=== PATIENT | male | born 2000 | race Two or more races ===

== ENCOUNTER 2023-09-27 11:04 | Emergency (ER) | payer MEDICAID ==
[~2023-09-27] VITALS: Ht 182.9 cm; Wt 94.4 kg
[2023-09-27 13:48] VITALS: BP 127/75; PULSE 86; RESP 18; TEMP 98; O2SAT 98
[2023-09-27] MEDS ORDERED: ALBUTEROL SULF 2.5 MG/0.5ML(0.5%) NEB SOLN NEB ONE (14:00)
[2023-09-27] MEDS ORDERED: IPRATROPIUM BROM 0.5 MG/2.5ML INH SOL NEB ONE (14:00)
[2023-09-27 14:20] VITALS: RESP 18; O2SAT 99
[2023-09-27] MEDS ORDERED: ALBU108A5 IN (14:33)
[2023-09-27] MEDS ORDERED: AZIT500T66 PO (14:33)
[2023-09-27] MEDS ORDERED: PROM1SOL4 PO (14:33)
== END 2023-09-27 15:02 | disposition home or self-care (01) ==
LOC: ER 11:04
DX: J45.909 Unspecified asthma, uncomplicated (principal); F17.210 Nicotine dependence, cigarettes, uncomplicated; F12.10 Cannabis abuse, uncomplicated
CPT/HCPCS: 71045; 94640; 99283; J7644

== ENCOUNTER → 2024-01-15 | Outpatient (CLI) | payer MEDICAID ==
[~2024-01-15] MED LIST: ALBU108A5 IN; AZIT500T66 PO; PROM1SOL4 PO
== END | disposition home or self-care (01) ==
LOC: XYW 07:46
PROVIDERS: ATTEND Student in an Organized Health Care Education/Training Program
DX: R07.9 Chest pain, unspecified (principal)
CPT/HCPCS: 93306

== ENCOUNTER 2024-03-27 22:15 | Emergency (ER) | payer MEDICAID ==
[~2024-03-27] VITALS: Ht 182.9 cm; Wt 106.8 kg
[2024-03-28] MEDS: FLUORESCEIN SOD OPTH TEST STRIP RIGHTEYE ONE (01:53)
[2024-03-28] MEDS: TETRACAINE HCL 0.5% OPTH(EYE) SOLN 4ML RIGHTEYE ONE (01:54)
[2024-03-28] MEDS ORDERED: OFL50TS OP (02:03)
[2024-03-28] MEDS: ERYTHROMY OPTH OINT 5mg/gm 1gm or 3.5gm tube OP ONE (02:43)
[2024-03-28] MEDS: TETANUS-DIPTH-ACEL PERTUSSIS 0.5ML SYR Tdap IM ONE (02:43)
[2024-03-28 03:08] VITALS: BP 119/79; PULSE 64; RESP 20; TEMP 98.6; O2SAT 99
== END 2024-03-28 04:48 | disposition home or self-care (01) ==
LOC: ER 22:15
DX: T15.02XA Foreign body in cornea, left eye, initial encounter (principal); J45.909 Unspecified asthma, uncomplicated; F17.210 Nicotine dependence, cigarettes, uncomplicated; F15.90 Other stimulant use, unspecified, uncomplicated; Z79.899 Other long term (current) drug therapy; W44.8XXA Other foreign body entering into or through a natural orifice, initial encounter; Y93.89 Activity, other specified; Y92.89 Other specified places as the place of occurrence of the external cause; Y99.8 Other external cause status
CPT/HCPCS: 90471; 90715

== ENCOUNTER 2025-04-06 19:24 | Emergency (ER) | payer MEDICAID ==
[~2025-04-06] VITALS: Ht 182.9 cm; Wt 99.9 kg
[~2025-04-06 19:24] MED LIST changes: +OFL50TS OP
[2025-04-06] MEDS ORDERED: IBUP-1456 PO (20:25)
--- NOTE | 2025-04-06 20:25 | ED.PDOC ---
HPI (NEURO) HPI Comments 24 year old male present to ER with complaints of headache x 5 days. Patient states he's been experiencing intermittent frontal headache x "5 days" s/p hitting his forehead against a "piece of wood" that got worse x 1 day with associated intermittent nausea and intermittent dizziness. He rates his current pain a 8/10 localized to forehead without radiation. Denies use of medications for current symptoms and presents to ER alert and oriented x4, with steady gait, in no distress. Denies fever, vomiting, numbness/tingling, LOC, neck pain or any further symptoms/complaints Chief Complaint: Headache Time Seen by MD: 19:25 Primary Care Provider: MARCELO Davila Notes: Nurses Notes, Medications, Allergies Information Source: Patient Mode of Arrival: Ambulatory Past Medical History PAST MEDICAL HISTORY: Asthma Surgical History: Denies all surgeries Family History Family History: Unknown Social History Smoker: Cigarettes, Less Than 1 Pack/Day Alcohol: Occasionally Drugs: Marijuana Lives In: Home Constitutional: denies: chills, diaphoresis, fatigue, fever, malaise, sweats, weakness, others EENTM: denies: blurred vision, double vision, ear bleeding, ear discharge, ear drainage, ear pain, ear ringing, eye pain, eye redness, hearing loss, mouth pain, mouth swelling, nasal discharge, nose bleeding, nose congestion, nose pain, photophobia, tearing, throat pain, throat swelling, voice changes, others Respiratory: denies: cough, hemoptysis, orthopnea, SOB at rest, shortness of breath, SOB with excertion, stridor, wheezing, others Cardiovascular: denies: chest pain, dizzy spells, diaphoresis, Dyspnea on exertion, edema, irregular heart beat, left arm pain, lightheadedness, palpitations, PND, syncope, others Gastrointestinal: reports: others (As stated in HPI) Genitourinary: denies: burning, dysuria, flank pain, frequency, hematuria, incontinence, penile discharge, penile sore, pain, testicle pain, testicle swelling, urgency, others Neurological: reports: others (As stated in HPI) Musculoskeletal: denies: back pain, gout, joint pain, joint swelling, muscle pain, muscle stiffness, neck pain, others Integumetry: denies: bruises, change in color, change in hair/nails, dryness, laceration, lesions, lumps, rash, wounds, others Allergic/Immunocompromised: denies: Difficulty Healing, Frequent Infections, Hives, Itching, others Hematologic/Lymphatic: denies: anemia, blood clots, easy bleeding, easy bruising, swollen glands, others Endocrine: denies: excessive hunger, excessive sweating, excessive thirst, excessive urination, flushing, intolerance to cold, intolerance to heat, unexplained weight gain, unexplained weight loss, others Psychiatric: denies: anxiety, bipolar disorder, depression, hopeless, panic disorder, schizophrenia, sleepless, suicidal, others Physical Exam General Appearance: No Apparent Distress HEENT: Normal ENT Inspection, PERRL/EOMI, Pharynx Normal, TMs Normal Neck: Full Range of Motion, Non-Tender, Normal Respiratory: Chest Non-Tender, Lungs Clear, No Accessory Muscle Use, No Resp iratory Distress, Normal Breath Sounds Cardiovascular: No Murmur, No Gallop, Regular Rate/Rhythm Breast Exam: Deferred Gastrointestinal: NOT DONE Genitalia: Deferred Pelvic: Deferred Rectal: Deferred Extremities: Normal capillary refill, Normal range of motion Neurologic: Alert, wastewater analyst II-XII nml as Tested, No Motor Deficits, Normal Affect, Normal Mood, No Sensory Deficits Cerebellar Function: Normal Reflexes: Normal Skin: Dry, Normal Color, Warm Lymphatic: No Adenopathy Was a procedure done? Was a procedure done?: No Sedation Sedation?: No Differential Diagnosis (SZ) Headache: Cluster, Subarachnoid Hemorrhage, Subdural Hemorrhage, Other (Fracture) X-Ray, Labs, Meds, VS Vital Signs Date Time Temp Pulse Resp B/P (MAP) Pulse Ox O2 Delivery O2 Flow Rate FiO2 04/06/25 20:16 98.1 82 18 109/66 (80) 99 98.1 PATIENT: LUCHO HAMM JACCT: [id number] UNIT: [id number] : 2000 LOC: ER ROOM / BED: / AGE / SEX: 24 / M ADM STATUS: REG ER SERVICE 16 ORDERING PHYSICIAN: DIOMEDES DE LA ROSA PROCEDURE(s): HWOCT - HEAD WITHOUT CONTRAST REASON: head injury ORDER NUMBER(s): [id number], ACCESSION NUMBER(s): [id number] Procedure: CT HEAD WITHOUT CONTRAST Study Date and Requested Time: 04/06/2025 08:16 PM History: head injury Comparison: None Dose: CTDI: 54.58 mGy DLP: 875.02 mGycm Technique: Multiplanar images obtained through the brain without intravenous contrast. Findings: Normal brain volume and formation. Mild chronic small vessel ischemic changes. No hemorrhages, masses, mass effect, midline shift, herniation or cytotoxic edema following a large vascular territory. No intra-axial or extra-axial fluid collections. No evidence of hydrocephalus. The basal cisterns are patent. The pituitary gland, sella and parasellar regions are unremarkable. The cerebellar tonsils are in normal position. The cerebellum is unremarkable. The orbits and globes are unremarkable. The paranasal sinuses and mastoids are clear. There are no worrisome calvarial lesions. Minimal right frontal scalp edema. Impression: No evidence of acute intracranial abnormality. ATED BY: LYNNE CALLAHAN DO DICTATED DATE/TIME: 04/06/252044 SIGNED BY: LYNNE CALLAHAN DO SIGNED DATE/TIME: 04/06/252044 CC: CT head without contrast reviewed Advised to follow up with PCP in 1-2 days Patient verbalized understanding and agreeable with current plan of care Advised to return to ER immediately if symptoms worsen Images Reviewed?: Images reviewed and evaluated by me Time of 1ST Reevaluation: 20:22 Reevaluation 1ST: N/A Patient Education/Counseling: Diagnosis, Treatment, Prognosis, Need For Follow Up Family Education/Counseling: No Family Present Departure 1 Departure Time of Disposition: 20:52 Impression: Primary Impression: Head injury Qualified Codes: S09.90XA - Unspecified injury of head, initial encounter Additional Impression: Frontal headache Disposition: 01 HOME / SELF CARE / HOMELESS Condition: Stable e-Prescriptions Ibuprofen (Ibuprofen) 800 Mg Tab 1 TAB PO TID PRN, #30 TAB 0 Refills Prov: DIOMEDES DE LA ROSA 04/06/25 Discharged With: Friend Critical Care Note Critical Care Time?: No Stability Stability form required: No Heart Score Heart Score: Heart Score Response (Comments) Value History N/A 0 EKG N/A 0 Age N/A 0 Risk Factors N/A 0 Troponin N/A 0 Total 0 DIOMEDES DE LA ROSA Apr 06, 2025 20:25
--- NOTE | 2025-04-06 20:48 | DVH ---
Procedure: CT HEAD WITHOUT CONTRAST Study Date and Requested Time: 04/06/2025 08:16 PM History: head injury Comparison: None Dose: CTDI: 54.58 mGy DLP: 875.02 mGycm Technique: Multiplanar images obtained through the brain without intravenous contrast. Findings: Normal brain volume and formation. Mild chronic small vessel ischemic changes. No hemorrhages, masses, mass effect, midline shift, herniation or cytotoxic edema following a large v ascular territory. No intra-axial or extra-axial fluid collections. No evidence of hydrocephalus. The basal cisterns are patent. The pituitary gland, sella and parasellar regions are unremarkable. The cerebellar tonsils are in nor mal position. The cerebellum is unremarkable. The orbits and globes are unremarkable. The paranasal sinuses and mastoids are clear. There are no wo rrisome calvarial lesions. Minimal right frontal scalp edema. Impression: No evidence of acute intracranial abnormality.
[2025-04-06 22:46] VITALS: BP 122/73; PULSE 73; RESP 12; TEMP 98.1; O2SAT 100
== END 2025-04-06 22:47 | disposition home or self-care (01) ==
LOC: ER 19:26
DX: S09.8XXA Other specified injuries of head, initial encounter (principal); R51.9 Headache, unspecified; J45.909 Unspecified asthma, uncomplicated; F17.210 Nicotine dependence, cigarettes, uncomplicated; F12.90 Cannabis use, unspecified, uncomplicated; F10.90 Alcohol use, unspecified, uncomplicated; W22.8XXA Striking against or struck by other objects, initial encounter; Y93.89 Activity, other specified; Y92.89 Other specified places as the place of occurrence of the external cause; Y99.8 Other external cause status; Y90.9 Presence of alcohol in blood, level not specified
CPT/HCPCS: 70450